=== PATIENT | male | born 2000 | race Two or more races ===

== ENCOUNTER 2024-09-17 17:32 | Emergency (ER) | payer BC, SELFPAY ==
[2024-09-17 17:33] VITALS: BMI 26.6
[2024-09-17 17:55] VITALS: BP 134/78; PULSE 100; RESP 20; TEMP 37.1; O2SAT 96
--- NOTE | 2024-09-17 17:58 | XR_ITS ---
Examination: PA chest single view TECHNIQUE: Upright PA chest single view Date and time: September 17, 2024 1805 hours Comparison February 23, 2017 INDICATIONS: Shortness of breath beginning 3 days ago. FINDINGS: Normal heart size. Lungs are clear. Osseous structures are intact. IMPRESSION: No active disease.
--- NOTE | 2024-09-17 17:59 | PD.ASTHM ---
ED Asthma RME/HPI General Chief Complaint: Asthma Stated Complaint: ASTHMA Time Seen by Provider: 09/17/24 17:57 Arrival date/time: 09/17/24 17:32 Case of a 23-year-old male with history of asthma came in in the emergency room due to shortness of breath and wheezing history of present illness started 2 weeks prior to arrival in the emergency room patient started to have shortness of breath and wheezing patient took his nebulized medication but only gave temporarily relief of the symptoms now with productive cough thus patient decided to start consult in the ER patient denies chest pain Limitations: no limitations Related Data Previous Rx's ?Medication ?Instructions ?Recorded IBU 800 mg tablet (ibuprofen) 800 mg PO Q6H PRN pain #30 tabs 05/25/21 albuterol sulfate 90 mcg/actuation 2 puff inhalation QID PRN 09/17/24 aerosol inhaler (Ventolin HFA) shortness of breath or wheezing #8.5 grams azithromycin 250 mg tablet See Rx Instructions PO .COMPLEX #6 09/17/24 tabs codeine 10 mg-guaifenesin 100 mg/5 5 ml PO Q6H PRN cough #120 mL 09/17/24 mL oral liquid (Guaifenesin AC) prednisone 20 mg tablet 20 mg PO BID #10 tabs 09/17/24 Allergies Allergy/AdvReac Type Severity Reaction Status Date / Time No Known Allergies Allergy Verified 09/17/24 17:33 Review of Systems Review of Systems Systems Reviewed: All systems reviewed, normal except as documented Constitutional Constitutional: Reports system reviewed and no additional complaints, except as documented ENT Ears, Nose, Mouth, and Throat: Reports system reviewed and no additional complaints, except as documented Cardiovascular Cardiovascular: Reports system reviewed and no additional complaints, except as documented Respiratory Respiratory: Reports system reviewed and no additional complaints, except as documented Gastrointestinal Gastrointestinal: Reports system reviewed and no additional complaints, except as documented Genitourinary Genitourinary: Reports system reviewed and no additional complaints, except as documented Musculoskeletal Musculoskeletal: Reports system reviewed and no additional complaints, except as documented Neurologic Neurologic: Reports system reviewed and no additional complaints, except as documented Past Medical History Social History SMOKING STATUS: Never smoker ED Exam General Limitations: Present no limitations General appearance: Present alert and in no apparent distress; Absent appears intoxicated, anxious or lethargic Head Head exam: Present atraumatic, normocephalic and normal inspection Eye Eye exam: Present normal appearance, PERRL and EOMI ENT ENT exam: Present normal exam, normal oropharynx, mucous membranes moist, TM's normal bilaterally and normal external ear exam Neck Neck exam: Present normal inspection, full ROM and trachea midline; Absent tenderness or meningismus Chest Chest inspection: Present normal inspection and symmetric chest wall rise Respiratory Respiratory exam: Present normal lung sounds bilaterally and wheezes (Wheezing both lower lungs filed no crackles no rales no retraction no stridor); Absent respiratory distress Cardiovascular Cardiovascular exam: Present regular rate, normal rhythm and normal heart sounds Abdominal Exam Abdominal exam: Present soft and normal bowel sounds Extremities Exam Extremities exam: Present normal inspection and full ROM Back Exam Back exam: Present normal inspection and full ROM Neurological Exam Neurological exam: Present alert, oriented X3 and CN II-XII intact Psychiatric Psychiatric exam: Present normal affect and normal mood Skin Skin exam: Present warm, dry, intact and normal color Course Quality Measures none Orders Category Date Time Status Bedside COVID-19 Antigen Test NOW Care 09/17/24 17:58 Active XR chest 1V portable Stat Exams 09/17/24 17:58 Ordered Albuterol/Ipratr Rt Vero [Duoneb Rt Vero] Med 09/17/24 17:58 Once 3 ml INH X1 ONE MethylPREDNISolone.* [SoluMEDROL Inj] Med 09/17/24 17:58 Once 125 mg IM X1 ONE Vital Signs Vital signs: Vital Signs Temperature 98.8 F 09/17/24 17:55 Pulse Rate 100 09/17/24 17:55 Respiratory Rate 20 09/17/24 17:55 Blood Pressure 134/78 H 09/17/24 17:55 Pulse Oximetry (%) 96 09/17/24 17:55 Oxygen Delivery Method Room Air 09/17/24 17:55 Oxygen saturation 96% on room air Asthma MDM Narrative MDM Narrative:: Case of a 23-year-old male with history of asthma came in in the emergency room due to shortness of breath and wheezing history of present illness started 2 weeks prior to arrival in the emergency room patient started to have shortness of breath and wheezing patient took his nebulized medication but only gave temporarily relief of the symptoms now with productive cough thus patient decided to start consult in the ER patient denies chest pain Patient is a oriented not in distress nontoxic looking HEENT exam is normal and unremarkable heart and RRR no murmur lungs were wheezing both lower lung yeager no crackles no rales no retraction no stridor no signs and symptoms of sepsis dehydration or hypoxia Patient was given a breathing treatment of DuoNeb and Solu-Medrol IM patient was reassessed after 30 minutes patient verbalized the improvement of the symptoms patient is not in distress wheezing resolved not hypoxic not in distress At this point patient will will be discharged as asthmatic bronchitis patient was prescribed with azithromycin for bronchitis prednisone to be started tomorrow Robitussin with codeine for cough Ventolin inhaler patient was advised to follow-up with primary care physician to be referred to division field inspector for asthma exacerbation and for any recurrence worsening symptoms he needs to return in the emergency room immediately or call 911 patient was discharged with comfortable condition walking with stable gait. Patient verbalized no further complains explained diagnosis and answered patient question. Patient is comfortable with the proposed management plan including the need to follow up with his/her primary care physician and any specialist if applicable Discussed patient for any urgent condition or worsening sx, He/She needed to go to emergency room immediately or call 911. Patient acknowledge the responsibility to follow up as instructed and to monitor her/his symptoms. For any persistence of the symptoms for more than 3-5 days return precaution advised. Discussed the result of the test and was given printed discharge instruction Patient data External records reviewed:: [facility] previous records Clinical information provided by:: patient Social determinants that could affect healthcare access:: none Patient has the following chronic illnesses:: None How is presenting disease/condition affected by chronic disease/condition?: no chronic disease Evaluation data The following diagnostics were reviewed and interpreted by me:: lab results and radiology exam(s) Lab and/or radiology exams considered but not ordered:: Reviewed Interpretation Summary: reviewed Medications / Prescriptions Medications or Prescriptions considered but not ordered:: given Medication administrations:: Medication Administration History Albuterol/Ipratropium (Albuterol/Ipratropium (Duoneb) Rt Vero 3 Ml Nebu) 3 ml INH X1 ONE Stop: 09/17/24 17:59 Methylprednisolone Sodium Succinate (Methylprednisolone Sod Succ 62.5 Mg/Ml 2ml Vial) 125 mg IM X1 ONE Stop: 09/17/24 17:59 given Consultations Consultation(s) initiated? (list below): No Diagnosis Differential diagnosis asthma: Acute exacerbation, Acute asthmatic bronchitis and Pneumonia Most likely diagnosis given after review of the tests above:: Asthmatic bronchitis Admission Indicated Admission indicated?: not indicated Explain why admission is indicated or not indicated:: Not indicated Admission Request Was there a request for admission?: No Admission Attestation Admission request attestation: Not indicated Disposition Plan Disposition Plan: Discharge Discharge Attestation Discharge Attestation: The patient and all family members were given an opportunity to ask questions and understood the discharge instructions. Discharge instructions specifically effects, indications for sooner follow up or return to the emergency department, and the expected course of current diagnosis. Patient condition: Stable Discharge Plan Plan Patient Disposition: HOME (Self Care) Patient condition on transfer: Stable Prescriptions/Referrals Prescriptions/Med Rec: New azithromycin 250 mg tablet See Rx Instructions .ROUTE .COMPLEX Qty: 6 0RF Rx Instructions: For 250 mg dose pack: take 500 mg today (day 1), then 250 mg for 4 days (days 2-5) prednisone 20 mg tablet 20 mg PO BID Qty: 10 0RF Rx Instructions: start tomorrow codeine-guaifenesin [Guaifenesin AC] 10-100 mg/5 mL liquid 5 ml PO Q6H PRN (Reason: cough) Qty: 120 0RF albuterol sulfate [Ventolin HFA] 90 mcg/actuation HFA aerosol inhaler 2 puff inhalation QID PRN (Reason: shortness of breath or wheezing) Qty: 8.5 0RF No Action ibuprofen [IBU] 800 mg tablet 800 mg PO Q6H PRN (Reason: pain) Qty: 30 0RF Referrals: No Primary/Family,Physician [Primary Care Provider] - In 1 week Problem List Clinical Impression: AB (asthmatic bronchitis) Patient/Caregiver Discharge Instructions Education Materials: Asthma Action Plan, Asthma Medicine, Asthma Additional Instructions: Follow-up with your primary care physician to be referred to division field inspector for your asthma exacerbation or any recurrence worsening symptoms return to the emergency room immediately or call [phone] Print Language: Irish Stand Alone Forms: Shavon Award Info., Patient Portal Info Letter PA/BULK STATION OPERATOR Supervising Physician PA/BULK STATION OPERATOR Supervising Physician: dr khan
[2024-09-17] MEDS: ALBUTEROL/IPRATROPIUM (Duoneb) RT SOL 3 ML NEBU INH (18:08)
[2024-09-17 18:11] VITALS: PULSE 112; RESP 19; O2SAT 99
[2024-09-17] MEDS: MethylPREDNISolone SOD SUCC 62.5 MG/ML 2ML VIAL 125 MG IM (18:32)
== END 2024-09-17 19:51 | disposition home or self-care (01) ==
PROVIDERS: Emergency Provider Family Medicine
DX: J45.909 Unspecified asthma, uncomplicated (principal)
CPT/HCPCS: 71045; 94640; 96372; 99283; A9270; J2919